=== PATIENT | female | born 1975 | race Two or more races ===

== ENCOUNTER 2018-07-01 16:14 | Emergency (ER) | payer BC ==
--- NOTE | 2018-07-01 18:06 | ED ---
Lower Extremity - HPI Summary HPI Summary: Patient complains of sudden onset left knee pain in the middle of the night was sleeping. States pain with weightbearing, no pain when sitting. States she took Aleve provided some relief. Denies trauma, new activity or exercise, history of gout, fever, cough, sore throat, CP, SOB, N/V/D, abdominal pain, change in urine or BM.. Medical history is none. - History of Current Complaint Chief Complaint: EDExtremityLower Stated Complaint: LT LEG PAIN Time Seen by Provider: 07/01/18 16:39 Hx Obtained From: Patient Mechanism Of Injury: Unknown Onset of Pain: Immediate, Hours Onset/Duration: Hours Severity Initially: Severe Severity Currently: Severe Pain Intensity: 10 Pain Scale Used: 0-10 Numeric Timing: Constant Location: Is Discrete @ Character Of Pain: Sharp Associated Signs And Symptoms: Positive: Knee Pain Aggravating Factor(s): Weight Bearing Alleviating Factor(s): Rest Able to Bear Weight: Yes - Allergies/Home Medications Allergies/Adverse Reactions: Allergies Allergy/AdvReac Type Severity Reaction Status Date / Time No Known Allergies Allergy Verified 07/01/18 16:30 PMH/Surg Hx/FS Hx/Imm Hx Endocrine/Hematology History: Denies: Hx Anticoagulant Therapy Cardiovascular History: Denies: Hx Cardiac Arrest History: Denies: Hx Dialysis Neurological History: Denies: Hx CVA Infectious Disease History: No Infectious Disease History: Denies: Traveled Outside the [place] in Last 30 Days - Social History Alcohol Use: None Substance Use Type: Reports: None Smoking Status (MU): Never Smoked Tobacco Review of Systems Constitutional: Negative Eyes: Negative ENT: Negative Cardiovascular: Negative Respiratory: Negative Gastrointestinal: Negative Genitourinary: Negative Positive: Arthralgia Skin: Negative Neurological: Negative Psychological: Normal All Other Systems Reviewed And Are Negative: Yes Physical Exam - Summary Physical Exam Summary: Full range of motion to left knee with mild pain at full extension and full flexion. No trauma, redness, swelling, extra warmth, purulent discharge, deformity noted to left knee. PMS intact distally. Triage Information Reviewed: Yes Vital Signs On Initial Exam: Initial Vitals Temp Pulse Resp BP Pulse Ox 98.4 F 87 18 126/73 100 07/01/18 16:26 07/01/18 16:26 07/01/18 16:26 07/01/18 16:26 07/01/18 16:26 Appearance: Positive: Well-Appearing Skin: Positive: Warm Head/Face: Positive: Normal Head/Face Inspection Eyes: Positive: Normal Neck: Positive: Supple Respiratory/Lung Sounds: Positive: Clear to Auscultation Cardiovascular: Positive: Normal Abdomen Description: Positive: Nontender Musculoskeletal: Positive: Normal Neurological: Positive: Normal Psychiatric: Positive: Normal AVPU Assessment: Alert - [place] Coma Scale Best Eye Response: 4 - Spontaneous Best Motor Response: 6 - Obeys Commands Best Verbal Response: 5 - Oriented Coma Scale Total: 15 Diagnostics - Vital Signs Vital Signs Temp Pulse Resp BP Pulse Ox 07/01/18 16:26 98.4 F 87 18 126/73 100 - Laboratory Lab Statement: Any lab studies that have been ordered have been reviewed, and results considered in the medical decision making process. Lower Extremity Course/Dx - Course Course Of Treatment: No evidence of trauma. Patient denies trauma. Physical exam unremarkable. Follow-up with orthopedics. - Diagnoses Provider Diagnoses: Knee pain, acute Discharge - Sign-Out/Discharge Documenting (check all that apply): Patient Departure - Discharge Plan Condition: Stable Disposition: HOME Patient Education Materials: Knee Pain (ED) Forms: *Work Release Referrals: No Primary Care Phys,NOPCP [Primary Care Provider] - Additional Instructions: ICE, ELEVATION, IBUPROFEN FOR LEFT KNEE PAIN. FOLLOW UP WITH ORTHOPEDICS DR SHEARER IF PAIN CONTINUES MORE THAN 5 DAYS. - Billing Disposition and Condition Condition: STABLE Disposition: Home
[2018-07-01 18:38] VITALS: BP 0/0
== END 2018-07-01 18:37 | disposition home or self-care (01) ==
LOC: ED 16:14
DX: M25.562 Pain in left knee (principal)
CPT/HCPCS: 99281